=== PATIENT | male | born 1995 | race Caucasian/White ===

== ENCOUNTER 2017-10-06 21:54 | Emergency (ER) | payer OTHER ==
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
[2017-10-06] MEDS ORDERED: Ketorolac 10 MG Tab PO ONE (22:57)
[2017-10-06] MEDS ORDERED: Cyclobenzaprine 10 MG Tab PO ONE (22:57)
== END 2017-10-06 23:40 | disposition home or self-care (01) ==
LOC: CC.ED 21:54
DX: S06.9X9A Unspecified intracranial injury with loss of consciousness of unspecified duration, initial encounter (principal); S40.011A Contusion of right shoulder, initial encounter; W20.8XXA Other cause of strike by thrown, projected or falling object, initial encounter
CPT/HCPCS: 70450; 73030; 99284; A9270